=== PATIENT | female | born 1970 | race Two or more races ===

== ENCOUNTER → 2016-12-06 | Outpatient (CLI) | payer OTHER ==
[~2016-12-06] MED LIST: /TIZA4TA PO; ALEV220C2 PO; AMBI10TA PO; AMBI12.52 PO; CALC600T3 PO; CALTTAB5 PO; CELE-19 PO; CEPH2CAP PO; CETI10TA PO; CIPR500T89 PO; DICL13PA TD; DULO30CA PO; FLEX5TAB3 PO; LEVO112T2 PO; MOTRIN PO; MULTCAP11 PO; PERC5TAB6 PO; SERT25TA85 PO; VICODIN PO; ZANA4TAB PO; ZYRT10TA2 PO; [UNRECOGNIZED DRUG - OTHER] PO; vitamin D OR
--- NOTE | 2016-12-15 00:16 | ECWPNPC ---
PATIENT NAME: NELI COLLINS : 1970 GENDER: FEMALE VISIT DATE: 12/06/2016 DISCHARGE DATE: 12/06/16 1527 VISIT LOCKED DATE TIME: PHYSICIAN: JUAN COBOS RESOURCE: JUAN COBOS REASON FOR APPOINTMENT 1. POST BOTOX HISTORY OF PRESENT ILLNESS HISTORY OF PRESENT ILLNESS: PAIN THE PATIENT DESCRIBES THE PAIN... FALL RISK SCREENING: SCREENING :NO FALLS IN THE PAST YEAR TODAY'S VISIT: NOTES: S/P BOTOX INJECTION FOR CHRONIC MIGRAINE COMPLETED ON10/08/16. SINCE THEN VEENA HAS HAD 3 MIGRAINE HEADACHE EVENTS 2 OF WHICH WERE SEVERE WITH THE PULSATING NERVE SENSATION WHICH SHOOTS TO THE EYE, AND THESE HAVE LASTED 4-12 HOURS.. NOTES PAIN IS STARTING EALIER IN THE DAY THAN AFTER THE LAST INJECTION RATES PAIN LEVEL TODAY 7/10. DID EXPERIENCE INCREASED PHOTOPHOBIA AND PAIN WITH NECK MOVEMENTS. . CURRENT MEDICATIONS TAKING MULTIVITAMINS OTC CAPSULE 1 ORALLY DAILY, NOTES: 09/27/16 1400 TAKING VITAMIN D (ERGOCALCIFEROL) 20458 UNIT CAPSULE 1 CAPSULE ORALLY TWICE WEEKLY FOR LOW VIT D (ENDO), NOTES: > 1 WEEK TAKING VITAMIN D-3 5000 UNIT TABLET 1 TABLET ORALLY ONCE DAILY FOR LOW VIT D (ENDO), NOTES: 09/27/16 1400 TAKING PROBIOTIC CAPSULE 1 CAP(S) ORALLY DAILY, NOTES: > 1 WEEK TAKING LEVOTHYROXINE SODIUM 112 MCG TABLET 1 TABLET ORALLY ONCE A DAY, NOTES: 09/28/16 0930 TAKING FLONASE 50 MCG/DOSE INHALER 2 SPRAYS IN EACH NOSTRIL NASALLY ONCE A DAY, NOTES: 09/27/162199 TAKING MECLIZINE HCL 25 MG TABLET 2 TABLETS NEEDED ORALLY TID, NOTES: 09/26/16 1400 TAKING AMBIEN 10 MG TABLET 1 TABLET AT BEDTIME NEEDED ORALLY QHS PRN MDD=1, NOTES: 09/27/162199 TAKING ZANAFLEX 4 MG TABLET 1 AND ONE HALF TABLET NEEDED ORALLY EVERY 8 HRS MDD2 TAKING TRAMADOL HCL 50 MG TABLET 1 -2 TABLET ORALLY EVERY 6 HRS PRN PAIN MDD=6, NOTES: 09/27/16 1400 TAKING PROZAC 40 MG CAPSULE 1 CAPSULE IN THE MORNING ORALLY ONCE A DAY TAKING XANAX 0.5 MG TABLET 1 TABLET ORALLY TWICE A DAY NEEDED MDD=2, NOTES: 12/6/16 2200 MEDICATION LIST REVIEWED AND RECONCILED WITH THE PATIENT PAST MEDICAL HISTORY ALLERGIC RHINITIS DEPRESSION ANXIETY INSOMNIA CHRONIC NECK PAIN HYPOTHYROIDISM ALLERGIES ENVIRONMENTAL: ITCHY EYES, NASAL DRAINAGE: ALLERGY PERCOCET: NAUSEA/VOMITING: SIDE EFFECTS SOCIAL HISTORY GENERAL: TOBACCO USE ARE YOU A:NONSMOKER LEARNING BARRIERS / SPECIAL NEEDS ORIENTED TO PLAN OF CARE: PATIENT, PAIN MANAGEMENT PATIENT, ORIENTED TO PLAN OF CARE: PATIENT, PAIN MANAGEMENT PATIENT. NEW PATIENT PAIN DIARY TODAY'S VISITNOTES FROM 0-10, WHAT LEVEL IS YOUR PAIN TODAY?0 PAIN CLINIC PFS, CLERGY, PUBLIC HEALTH REFERRALS PFS REFERRAL NEEDED?NO CLERGY REFERRAL NEEDED?NO PUBLIC HEALTH REFERRAL NEEDED?NO WAS THE PROVIDER NOTIFIED OF ANY PERTINENT INFO?NO PFS REFERRAL NEEDED?NO CLERGY REFERRAL NEEDED?NO PUBLIC HEALTH REFERRAL NEEDED?NO WAS THE PROVIDER NOTIFIED OF ANY PERTINENT INFO?NO REVIEW OF SYSTEMS CONSTITUTIONAL: ANY CHANGE IN YOUR MEDICAL CONDITION? NO . CHILLS NO . FEVER NO . INFECTION: DO YOU HAVE NEW INFECTIONS? NO . DO YOU HAVE HISTORY OF MRSA? NO . MUSCULOSKELETAL: ANY NEW PATTERNS OF PAIN OR NUMBNESS? NO . GASTROENTEROLOGY: ANY NEW CHANGE IN BOWEL CONTROL? NO . GENITOURINARY: ANY NEW CHANGE IN BLADDER CONTROL? NO . IS THERE A CHANCE YOU COULD BE ? NO . HEMATOLOGY/LYMPH: DO YOU TAKE ANY BLOOD THINNERS? (FOR EXAMPLE- COUMADIN, PLAVIX, AGGRENOX, PLATEL, PRADAXA, OR XARELTO) NO . WHEN WAS YOUR LAST DOSE? DATE: TIME: . NEUROLOGY: HAVE YOU FALLEN IN THE PAST 6 MONTHS? YES-FELL ON STAIRS WITH LAUNDRY. NO ED EVAL . ANY NEW EXTREMITY NUMBNESS OR WEAKNESS? NO . CARDIOLOGY: DO YOU HAVE A PACEMAKER OR DEFIBRILLATOR? NO . RESPIRATORY: HAVE YOU BEEN SICK IN THE PAST WEEK? NO . FEVER NO . FLU LIKE SYMPTOMS? NO . COUGH NO . INTEGUMENTARY: DO YOU HAVE ANY RASHES OR OPEN SORES? NO . ALLERGIC/IMMUNO: ARE YOU ALLERGIC TO SHELLFISH OR IV DYE? NO . ANY NEW ALLERGIES? NO . PSYCHIATRIC: DO YOU HAVE THOUGHTS OF HURTING YOURSELF OR SOMEONE ELSE? NO . ARE YOU ABUSED, NEGLECTED, OR IN AN UNSAFE ENVIRONMENT? NO . ENDOCRINOLOGY: ARE YOU DIABETIC? NO . OTHER: DO YOU NEED ANY PRESCRIPTIONS? YES TRAMADOL-MAIL ORDER . IF YES, PLEASE LIST: ____ . ANY NEW PROBLEMS WITH YOUR MEDICATIONS? NO . WHEN DID YOU LAST EAT? ____ . WHEN DID YOU LAST DRINK? ____ . WHAT DID YOU LAST DRINK? ____ . NAME OF PERSON DRIVING YOU HOME? ____ . DO YOU HAVE ANY OTHER QUESTIONS OR CONCERNS NO . PSYCHOLOGY: ANXIETY SECONDARY TO FAMILY STRESS. STARTED ON XANAX BY PCP WHICH WAS HELPFUL. . REVIEWED BY: PROVIDER: JUAN SHIELDS . VITAL SIGNS WT 148 LBS, HT 62 IN, BMI 27.07 INDEX, BP 118/67 MM HG, HR 78 /MIN, RR 16 /MIN, TEMP 96.9 F, OXYGEN SAT % 96%, REVIEWED BY: MLF. EXAMINATION GENERAL EXAMINATION: PSYCHALERT , ORIENTED X 3 , GOOD EYE CONTACT, ABLE TO SMILE TODAY. LUNGS:CLEAR TO AUSCULTATION BILATERALLY. HEART:HEART RATE REGULAR. MUSCULOSKELETAL:MUSCLE STRENGTH TESTING 5/5 BILATERAL IN UPPER AND LOWER EXTREMITIES. , FEW TRIGGER POINTS:, ELICITED WITH PALPATION OVER CERVICAL SPINOUS PROCESSES AND ACROSS THE TRAPEZIUS MUSCLES BILATERALLY. CONVEYOR TENDER CONCRETE MIXING PLANT STRENGTH EQUAL AND STRONG. NEUROLOGIC EXAM:PAIN OVER GREAT OCCIPITAL NERVES BILATERALLY. . EOM'S INTACT WITHOUT NYSTAGMUS. SPEECH NON DYSARTHRIC, CN'S II-XII GROSSLY INTACT. ASSESSMENTS CHRONIC MIGRAINE W/O AURA W/O STATUS MIGRAINOSUS, NOT INTRACTABLE - G43.709 (PRIMARY) FACET ARTHROPATHY, CERVICAL - M46.92 MYALGIA - M79.1 TREATMENT CHRONIC MIGRAINE W/O AURA W/O STATUS MIGRAINOSUS, NOT INTRACTABLE REFILL TRAMADOL HCL TABLET, 50 MG, 1 -2 TABLET, ORALLY, EVERY 6 HRS PRN PAIN MDD=6, 30 DAY(S), 180, REFILLS 1 CHEMODENERVATION (BOTOX) MISC-MIGRAINE HEADACHESPAPITOOZIELJUAN M 12/06/2016 3:00:58 PM > DUEE 12/27/16 NOTES: CALL ANYTIME IF NEED ANYTHING. PREVENTIVE MEDICINE PAIN CLINIC TEACHING: PROCEDURE TEACHING REVIEWED BOTOX PROCEDURE INSTRUCTIONS WITH PATIENT. JAY. PROCEDURE CODES FA211 ESTABILISHED PATIENT [facility] FACILITY CHARGE DISPOSITION & COMMUNICATION FOLLOW UP AFTER BOTOX (REASON: CHECK AUTH FOR BOTOX) ELECTRONICALLY SIGNED BY MONICA BERNABE ON 12/14/2016 AT 06:35 PM EST DISCLAIMER : THIS IS A VISIT SUMMARY EXTRACTED FROM THE [employer] CHART. IT IS NOT A COPY OF THE [employer] PROGRESS NOTE. BRENDA
== END ==
LOC: M PAIN 14:20
PROVIDERS: ATTEND Nurse Practitioner Family
DX: G43.709 Chronic migraine without aura, not intractable, without status migrainosus (principal); M46.92 Unspecified inflammatory spondylopathy, cervical region; M79.1 Myalgia; G89.29 Other chronic pain; Z79.891 Long term (current) use of opiate analgesic; Z79.899 Other long term (current) drug therapy; F32.9 Major depressive disorder, single episode, unspecified; F41.9 Anxiety disorder, unspecified; M54.2 Cervicalgia; G47.00 Insomnia, unspecified; E03.9 Hypothyroidism, unspecified; J30.9 Allergic rhinitis, unspecified; Z88.6 Allergy status to analgesic agent

== ENCOUNTER → 2017-01-30 | Outpatient (CLI) | payer OTHER ==
[~2017-01-30] MED LIST changes: +BOTULINUM INJ 100 UNITS (J0585) IM ONE; +SERT25TA PO; +diazePAM 5 MG TAB As Ordered ONE
--- NOTE | 2017-02-08 00:05 | ECWPNPC ---
PATIENT NAME: NELI COLLINS : 1970 GENDER: FEMALE VISIT DATE: 01/30/2017 DISCHARGE DATE: 01/30/17 1423 VISIT LOCKED DATE TIME: PHYSICIAN: ROBERT MARSHALL RESOURCE: ROBERT MARSHALL REASON FOR APPOINTMENT 1. BOTOX HISTORY OF PRESENT ILLNESS HISTORY OF PRESENT ILLNESS: PAIN THE PATIENT DESCRIBES THE PAIN... FALL RISK SCREENING: SCREENING :NO FALLS IN THE PAST YEAR CURRENT MEDICATIONS TAKING MULTIVITAMINS OTC CAPSULE 1 ORALLY DAILY, NOTES: 1200 YESTERDAY TAKING VITAMIN D (ERGOCALCIFEROL) 75327 UNIT CAPSULE 1 CAPSULE ORALLY TWICE WEEKLY FOR LOW VIT D (ENDO), NOTES: LAST TUE TAKING VITAMIN D-3 5000 UNIT TABLET 1 TABLET ORALLY ONCE DAILY FOR LOW VIT D (ENDO), NOTES: DINNER 6PM TESTERDAY TAKING PROBIOTIC CAPSULE 1 CAP(S) ORALLY DAILY, NOTES: LUNCH YESTERDAY TAKING LEVOTHYROXINE SODIUM 112 MCG TABLET 1 TABLET ORALLY ONCE A DAY, NOTES: 1000 01/30/17 TAKING FLONASE 50 MCG/DOSE INHALER 2 SPRAYS IN EACH NOSTRIL NASALLY ONCE A DAY, NOTES: NOT LATELY TAKING MECLIZINE HCL 25 MG TABLET 2 TABLETS NEEDED ORALLY TID, NOTES: AWHILE TAKING ZANAFLEX 4 MG TABLET 1 AND ONE HALF TABLET NEEDED ORALLY EVERY 8 HRS MDD2, NOTES: BEDTIME 11PM LAST NIGHT TAKING TRAMADOL HCL 50 MG TABLET 1 -2 TABLET ORALLY EVERY 6 HRS PRN PAIN MDD=6, NOTES: 830 PM YESTERDAY TAKING AMBIEN 10 MG TABLET 1 TABLET AT BEDTIME NEEDED ORALLY QHS PRN MDD=1, NOTES: LAST NIGHT 11PM TAKING PROZAC 40 MG CAPSULE 1 CAPSULE IN THE MORNING ORALLY ONCE A DAY, NOTES: LUNCH YESTERDAY TAKING XANAX 0.5 MG TABLET 1 TABLET ORALLY TWICE A DAY NEEDED MDD=2, NOTES: 8PM LAST NIGHT MEDICATION LIST REVIEWED AND RECONCILED WITH THE PATIENT PAST MEDICAL HISTORY ALLERGIC RHINITIS DEPRESSION ANXIETY INSOMNIA CHRONIC NECK PAIN HYPOTHYROIDISM ALLERGIES ENVIRONMENTAL: ITCHY EYES, NASAL DRAINAGE: ALLERGY PERCOCET: NAUSEA/VOMITING: SIDE EFFECTS SOCIAL HISTORY GENERAL: PAIN CLINIC PFS, CLERGY, PUBLIC HEALTH REFERRALS CLERGY REFERRAL NEEDED?NO WAS THE PROVIDER NOTIFIED OF ANY PERTINENT INFO?NO PFS REFERRAL NEEDED?NO PUBLIC HEALTH REFERRAL NEEDED?NO PATIENT: ____. REVIEW OF SYSTEMS CONSTITUTIONAL: ANY CHANGE IN YOUR MEDICAL CONDITION? NO . CHILLS NO . FEVER NO . INFECTION: DO YOU HAVE NEW INFECTIONS? NO . DO YOU HAVE HISTORY OF MRSA? NO . MUSCULOSKELETAL: ANY NEW PATTERNS OF PAIN OR NUMBNESS? NO . GASTROENTEROLOGY: ANY NEW CHANGE IN BOWEL CONTROL? NO . GENITOURINARY: ANY NEW CHANGE IN BLADDER CONTROL? NO . IS THERE A CHANCE YOU COULD BE ? NO . HEMATOLOGY/LYMPH: DO YOU TAKE ANY BLOOD THINNERS? (FOR EXAMPLE- COUMADIN, PLAVIX, AGGRENOX, PLATEL, PRADAXA, OR XARELTO) NO . WHEN WAS YOUR LAST DOSE? DATE: TIME: . NEUROLOGY: HAVE YOU FALLEN IN THE PAST 6 MONTHS? NO . ANY NEW EXTREMITY NUMBNESS OR WEAKNESS? NO . CARDIOLOGY: DO YOU HAVE A PACEMAKER OR DEFIBRILLATOR? NO . RESPIRATORY: HAVE YOU BEEN SICK IN THE PAST WEEK? NO . FEVER NO . FLU LIKE SYMPTOMS? NO . COUGH NO . INTEGUMENTARY: DO YOU HAVE ANY RASHES OR OPEN SORES? NO . ALLERGIC/IMMUNO: ARE YOU ALLERGIC TO SHELLFISH OR IV DYE? NO . ANY NEW ALLERGIES? NO . PSYCHIATRIC: DO YOU HAVE THOUGHTS OF HURTING YOURSELF OR SOMEONE ELSE? NO . ARE YOU ABUSED, NEGLECTED, OR IN AN UNSAFE ENVIRONMENT? NO . ENDOCRINOLOGY: ARE YOU DIABETIC? NO . OTHER: DO YOU NEED ANY PRESCRIPTIONS? NO . IF YES, PLEASE LIST: ____ . ANY NEW PROBLEMS WITH YOUR MEDICATIONS? NO . WHEN DID YOU LAST EAT? 9PM LAST NIGHT . WHEN DID YOU LAST DRINK? 1030 TODAY AM . WHAT DID YOU LAST DRINK? WATER . NAME OF PERSON DRIVING YOU HOME? SON - BOSTON COLLINS . DO YOU HAVE ANY OTHER QUESTIONS OR CONCERNS NO . REVIEWED BY: PROVIDER: . VITAL SIGNS WT 137.2 LBS, HT 62 IN, BMI 25.09 INDEX, BP 103/70 MM HG, HR 85 /MIN, RR 18 /MIN, TEMP 97.7 F, OXYGEN SAT % 96, REVIEWED BY: NL. ASSESSMENTS CHRONIC MIGRAINE WITHOUT AURA, NOT INTRACTABLE, WITHOUT STATUS MIGRAINOSUS - G43.709 (PRIMARY) PROCEDURES PRE PROCEDURE DIAGNOSIS CHRONIC MIGRAINE HEADACHES. POST PROCEDURE DIAGNOSIS CHRONIC MIGRAINE HEADACHES. PROCEDURE BOTOX INJECTION AT THE HEAD, NECK AND SHOULDERS. SURGEON DR. ROBERT MARSHALL. REVENUE AUDIT CLERK NONE. ANESTHESIA NONE. PRE PROCEDURE NOTE THE PATIENT HAS HISTORY OF CHRONIC MIGRAINE HEADACHES. I EVALUATE THE PATIENT AND REVIEWED THE CHART. I WENT OVER THE RISKS, ALTERNATIVES, AND BENEFITS ASSOCIATED WITH THIS PROCEDURE. THE PATIENT WOULD LIKE TO PROCEED AND GIVE CONSENT TO PERFORMED THE PROCEDURE. THE PATIENT DENIES UNEXPLAINABLE WEIGHT LOSS, FEVER, CHILLS, OR NEW CHANGES IN URINARY OR BOWEL CONTROL. THE PATIENT DID A BOTOX INJECTION AT THE HEAD, NECK AND SHOULDERS 3 MONTHS AGO AND EXPRESSED MORE THAN 50% REDUCTION ON THE FREQUENCY AND INTENSITY OF THE HEADACHES. THE PATIENT EXPRESS THAT THE USE OF BOTOX HAS REDUCE SIGNIFICANTLY THE SEVERITY OF THE HEADACHES AND EXPRESSED THAT WANT TO RECEIVE THIS PROCEDURE AGAIN TODAY. DESCRIPTION OF PROCEDURE THE PATIENTS WAS BROUGHT TO THE PROCEDURE ROOM AND PLACED IN THE SUPINE POSITION. I CHECKED LATERALITY AND THE AREAS WHERE THE PROCEDURE WAS GOING TO BE PERFORMED WITH THE PATIENT AND THE SUPPORTING STAFF AT THE MOMENT OF THE TIME OUT IN THE PROCEDURE ROOM. FOR THE PROCEDURE I USED A SOLUTION OF 5 UNITS OF BOTOX PER EACH 0.1 ML OF THE SOLUTION. I USED A 30-GAUGE NEEDLE TO INJECT THE SOLUTION AT THE SELECTED LOCATIONS. I INJECTED FIRST THE RIGHT AND LEFT RN TRANSPLANT MUSCLES. THE LANDMARK FOR BOTH INJECTIONS WAS APPROXIMATELY 1 CM ABOVE THE SUPERIOR MEDIAL EDGE OF THE EYEBROW. AFTER THESE TWO INJECTIONS, I INJECTED THE PROCERUS MUSCLE AT THE MIDLINE POINT BETWEEN THESE FIRST TWO INJECTIONS. THEN I PROCEEDED TO INJECT THE RIGHT AND LEFT FRONTALIS MUSCLE. TWO INJECTIONS WERE DONE IN EACH SIDE. THE FIRST INJECTION WAS DONE APPROXIMATELY 2 CM ABOVE THE FIRST INJECTION OF THE RN TRANSPLANT. THE SECOND INJECTION WAS DONE APPROXIMATELY 1.5 CM LATERAL TO THIS FIST INJECTION OF THE FRONTALIS OF EACH SIDE. AFTER THE INJECTIONS OVER THE FOREHEAD WERE DONE, THE PATIENT'S HEAD WAS TURNED TO THE LEFT SIDE AND WE STARTED TO WORK WITH THE RIGHT TEMPORALIS MUSCLE. FIRST INJECTION WAS DONE IN A VERTICAL LINE OF THE TRAGUS APPROXIMATELY 3 CM ABOVE THE TRAGUS. THE SECOND INJECTION WAS DONE APPROXIMATELY 2 CM ABOVE THE FIRST INJECTION. THE THIRD INJECTION WAS DONE APPROXIMATELY 1 CM FRONT CONNELLY FROM THIS VERTICAL LINE CREATED AT THE LEVEL OF THE TRAGUS, JAIL BETWEEN THESE TWO INJECTIONS. THE FOURTH INJECTION WAS DONE APPROXIMATELY 1.5 CM BACK FROM THE SECOND INJECTION TO THE TEMPORALIS IN LINE TO THE MIDPORTION OF THE EAR. THEN, WE PROCEEDED TO INJECT THE LEFT TEMPORALIS MUSCLE. WE CLEANED THE AREA WITH ALCOHOL AND PROCEEDED TO PERFORM THE SAME FOR INJECTIONS DESCRIBED ABOVE BUT IN THE LEFT TEMPORALIS MUSCLE USING THE SAME LANDMARKS. AFTER THESE INJECTIONS WERE DONE, THE PATIENT WAS SEATED. FIRST, WE STARTED TO INJECT THE LEFT AND RIGHT OCCIPITALIS MUSCLE. I INJECTED AT THE FOLLOWING PLACES IN THE RIGHT AND LEFT MUSCLE. THE FIRST INJECTION WAS DONE AT THE MIDPOINT POSITION BETWEEN THE MASTOID PROCESS AND THE INION OF THE OCCIPITAL PROTUBERANCE. THE SECOND INJECTION WAS DONE APPROXIMATELY 1.5 CM SUPERIOR AND LATERAL OF THIS POINT. THE THIRD INJECTION WAS DONE APPROXIMATELY 1.5 CM SUPERIOR AND MEDIAL TO THIS FIRST INJECTION. THEN, I PROCEEDED TO INJECT THE RIGHT AND LEFT PARASPINAL MUSCLES. LANDMARK OF THE INJECTION WERE APPROXIMATELY: FIRST INJECTION 3 CM BELOW THE INION AND 1 CM LATERAL TO THE MIDLINE AND SECOND INJECTION AT EACH SIDE WAS DONE APPROXIMATELY 1.5 CM SUPERIOR AND LATERAL OF THE FIRST INJECTION. THE LAST GROUP OF INJECTIONS WAS DONE OVER THE RIGHT AND LEFT TRAPEZIUS MUSCLE OVER THE SHOULDERS AREA. THE FIRST INJECTION WAS DONE AT THE MIDPOINT BETWEEN THE INFLECTION POINT BETWEEN THE NECK AND SHOULDER AND THE ACROMION. THE SECOND AND THIRD INJECTIONS WERE DONE APPROXIMATELY 2.5 CM LATERAL AND MEDIAL FROM THIS FIRST INJECTION. SAME TARGETS WERE USED IN THE RIGHT AND LEFT SIDE. IN TOTAL, I INJECTED 155 UNITS OF BOTOX. PROCEDURE WAS DONE WITHOUT EVIDENCE OF PARESTHESIA, PNEUMOTHORAX, OR ANY COMPLICATIONS. THE PATIENT TOLERATED THE PROCEDURE VERY WELL. THE PATIENT WAS SENT TO THE RECOVERY ROOM FOR OBSERVATIONS. INJECTIONS WERE DONE AFTER CLEANING WITH ALCOHOL, USING ASEPTIC TECHNIQUES. POST PROCEDURE NOTE THE PROCEDURE DONE WAS DISCUSSED WITH THE PATIENT. THE PATIENT WILL BE SEEN IN A FOLLOW UP IN THE NEXT FEW WEEKS. INSTRUCTIONS WERE GIVEN, QUESTIONS WERE ANSWERED, AND THE PATIENT EXPRESSED UNDERSTANDING AND AGREES WITH THE PLAN. I, ALFREDO BRISENO, DOCUMENTED THE ABOVE INFORMATION ACTING A SCRIBE FOR DR. MARSHALL. I HAVE REVIEWED THE ABOVE DOCUMENT, WRITTEN BY ALFREDO HAM AND I VERIFY THAT IT IS ACCURATE. PROCEDURE CODES 47826 CHEMODENERV [facility] MIGRAINE DISPOSITION & COMMUNICATION FOLLOW UP 3 WEEKS ELECTRONICALLY SIGNED BY ROBERT MARSHALL MD ON 02/07/2017 AT 08:36 PM EDT DISCLAIMER : THIS IS A VISIT SUMMARY EXTRACTED FROM THE [employer] CHART. IT IS NOT A COPY OF THE [employer] PROGRESS NOTE. BRENDA
== END ==
LOC: M PAIN 11:40
PROVIDERS: ATTEND Anesthesiology
DX: G43.709 Chronic migraine without aura, not intractable, without status migrainosus (principal); F32.9 Major depressive disorder, single episode, unspecified; F41.9 Anxiety disorder, unspecified; G47.00 Insomnia, unspecified; E03.9 Hypothyroidism, unspecified; J30.9 Allergic rhinitis, unspecified; Z88.5 Allergy status to narcotic agent; Z79.891 Long term (current) use of opiate analgesic; Z79.899 Other long term (current) drug therapy
CPT/HCPCS: 64615; J0585

== ENCOUNTER → 2017-02-20 | Outpatient (CLI) | payer OTHER ==
[~2017-02-20] MED LIST changes: -BOTULINUM INJ 100 UNITS (J0585) IM ONE; -diazePAM 5 MG TAB As Ordered ONE
[2017-02-20 20:08] LABS: FREE T4 1.6 NG/DL (0.76-1.46)
== END ==
LOC: M LRY 12:34
PROVIDERS: ATTEND Physician Assistant Medical
DX: E06.3 Autoimmune thyroiditis (principal); E55.9 Vitamin D deficiency, unspecified

== ENCOUNTER → 2017-02-23 | Outpatient (CLI) | payer OTHER ==
--- NOTE | 2017-02-23 23:30 | ECWPNPC ---
PATIENT NAME: NELI COLLINS : 1970 GENDER: FEMALE VISIT DATE: 02/23/2017 DISCHARGE DATE: 02/23/17 1529 VISIT LOCKED DATE TIME: PHYSICIAN: JUAN COBOS RESOURCE: JUAN COBOS HISTORY OF PRESENT ILLNESS HISTORY OF PRESENT ILLNESS: PAIN THE PATIENT DESCRIBES THE PAIN... FALL RISK SCREENING: SCREENING :NO FALLS IN THE PAST YEAR TODAY'S VISIT: NOTES: S/P BOTOX INJECTION 01/30/17. NOTES SORENESS FOR THE 1ST WEEK AFTER INJECTIONS. HAS ONLY SEVERE MIGRAINE STARTING AT THE LEFT NECK AND RADIATED TO LEFT EYE. EVEN LASTED 24 HOURS AND THEN SUBSIDED. OTHERWISE HAS HAD A SORENESS AND SOME TIGHTNESS AND THEN MORE RELIEF TIME PASSED. USES TENS UNIT TO LEFT SHOULDER WITH GOOD EFFECT. WITH SEVERE MIGRAINE HAS N/V PHOTOAND PHONO PHOBIA. IS NOTING SOME INCREASE IN NECK AREA PAIN DUE TO HEAVY LIFTING. NO NEW N/T IN THE ARMS. . CURRENT MEDICATIONS TAKING MULTIVITAMINS OTC CAPSULE 1 ORALLY DAILY TAKING VITAMIN D (ERGOCALCIFEROL) 29088 UNIT CAPSULE 1 CAPSULE ORALLY TWICE WEEKLY FOR LOW VIT D (ENDO) TAKING VITAMIN D-3 5000 UNIT TABLET 1 TABLET ORALLY ONCE DAILY FOR LOW VIT D (ENDO) TAKING PROBIOTIC CAPSULE 1 CAP(S) ORALLY DAILY TAKING LEVOTHYROXINE SODIUM 112 MCG TABLET 1 TABLET ORALLY ONCE A DAY TAKING FLONASE 50 MCG/DOSE INHALER 2 SPRAYS IN EACH NOSTRIL NASALLY ONCE A DAY TAKING MECLIZINE HCL 25 MG TABLET 2 TABLETS NEEDED ORALLY TID TAKING ZANAFLEX 4 MG TABLET 1 AND ONE HALF TABLET NEEDED ORALLY EVERY 8 HRS MDD2 TAKING TRAMADOL HCL 50 MG TABLET 1 -2 TABLET ORALLY EVERY 6 HRS PRN PAIN MDD=6 TAKING AMBIEN 10 MG TABLET 1 TABLET AT BEDTIME NEEDED ORALLY QHS PRN MDD=1 TAKING PROZAC 40 MG CAPSULE 1 CAPSULE IN THE MORNING ORALLY ONCE A DAY TAKING XANAX 0.5 MG TABLET 1 TABLET ORALLY TWICE A DAY NEEDED MDD=2 MEDICATION LIST REVIEWED AND RECONCILED WITH THE PATIENT PAST MEDICAL HISTORY ALLERGIC RHINITIS DEPRESSION ANXIETY INSOMNIA CHRONIC NECK PAIN HYPOTHYROIDISM ALLERGIES ENVIRONMENTAL: ITCHY EYES, NASAL DRAINAGE: ALLERGY PERCOCET: NAUSEA/VOMITING: SIDE EFFECTS REVIEW OF SYSTEMS CONSTITUTIONAL: ANY CHANGE IN YOUR MEDICAL CONDITION? NO . CHILLS NO . FEVER NO . INFECTION: DO YOU HAVE NEW INFECTIONS? NO . DO YOU HAVE HISTORY OF MRSA? NO . MUSCULOSKELETAL: ANY NEW PATTERNS OF PAIN OR NUMBNESS? NO . GASTROENTEROLOGY: ANY NEW CHANGE IN BOWEL CONTROL? NO . GENITOURINARY: ANY NEW CHANGE IN BLADDER CONTROL? NO . IS THERE A CHANCE YOU COULD BE ? NO . HEMATOLOGY/LYMPH: DO YOU TAKE ANY BLOOD THINNERS? (FOR EXAMPLE- COUMADIN, PLAVIX, AGGRENOX, PLATEL, PRADAXA, OR XARELTO) NO . WHEN WAS YOUR LAST DOSE? DATE: TIME: . NEUROLOGY: HAVE YOU FALLEN IN THE PAST 6 MONTHS? NO . ANY NEW EXTREMITY NUMBNESS OR WEAKNESS? NO . CARDIOLOGY: DO YOU HAVE A PACEMAKER OR DEFIBRILLATOR? NO . RESPIRATORY: HAVE YOU BEEN SICK IN THE PAST WEEK? NO . FEVER NO . FLU LIKE SYMPTOMS? NO . COUGH NO . INTEGUMENTARY: DO YOU HAVE ANY RASHES OR OPEN SORES? NO . ALLERGIC/IMMUNO: ARE YOU ALLERGIC TO SHELLFISH OR IV DYE? NO . ANY NEW ALLERGIES? NO . PSYCHIATRIC: DO YOU HAVE THOUGHTS OF HURTING YOURSELF OR SOMEONE ELSE? NO . ARE YOU ABUSED, NEGLECTED, OR IN AN UNSAFE ENVIRONMENT? NO . ENDOCRINOLOGY: ARE YOU DIABETIC? NO . OTHER: DO YOU NEED ANY PRESCRIPTIONS? YES . IF YES, PLEASE LIST: TIZANIDINE AND TRAMADOL . ANY NEW PROBLEMS WITH YOUR MEDICATIONS? NO . WHEN DID YOU LAST EAT? ____ . WHEN DID YOU LAST DRINK? ____ . WHAT DID YOU LAST DRINK? ____ . NAME OF PERSON DRIVING YOU HOME? ____ . DO YOU HAVE ANY OTHER QUESTIONS OR CONCERNS YES, RECORDS RELEASE . REVIEWED BY: PROVIDER: JUAN SHIELDS . VITAL SIGNS WT 135.6 LBS, HT 62 IN, BMI 24.80 INDEX, BP 126/78 MM HG, HR 72 /MIN, RR 16 /MIN, TEMP 98.0 F, OXYGEN SAT % 95%, REVIEWED BY: CS (DONE AT 1430). EXAMINATION GENERAL EXAMINATION: PSYCHALERT , ORIENTED X 3 , GOOD EYE CONTACT, ABLE TO SMILE TODAY. LUNGS:CLEAR TO AUSCULTATION BILATERALLY. HEART:HEART RATE REGULAR. MUSCULOSKELETAL:MUSCLE STRENGTH TESTING 5/5 BILATERAL IN UPPER AND LOWER EXTREMITIES. , FEW TRIGGER POINTS:, ELICITED WITH PALPATION OVER CERVICAL SPINOUS PROCESSES AND ACROSS THE TRAPEZIUS MUSCLES BILATERALLY. 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 DECREASED ROM WITH NECK ROTATION. PAIN/TIGHTNESS REPORTED WITH SHOULDER SHRUG. NEUROLOGIC EXAM:PAIN OVER GREAT OCCIPITAL NERVES BILATERALLY. . EOM'S INTACT WITHOUT NYSTAGMUS. SPEECH NON DYSARTHRIC, CN'S II-XII GROSSLY INTACT. DTR'S 2+ RUE, 3+ LUE, AND 3+ BILATERAL LOWER EXTRENITES. NO CLONUS. . ASSESSMENTS CHRONIC MIGRAINE WITHOUT AURA, NOT INTRACTABLE, WITHOUT STATUS MIGRAINOSUS - G43.709 (PRIMARY) CERVICALGIA - M54.2 TREATMENT CHRONIC MIGRAINE WITHOUT AURA, NOT INTRACTABLE, WITHOUT STATUS MIGRAINOSUS REFILL ZANAFLEX TABLET, 4 MG, 1 AND ONE HALF TABLET NEEDED, ORALLY, EVERY 8 HRS MDD2, 90 DAY(S), 180, REFILLS 2 REFILL TRAMADOL HCL TABLET, 50 MG, 1 -2 TABLET, ORALLY, EVERY 6 HRS PRN PAIN MDD=6 CODE D CHRONIC PAIN, 90 DAY(S), 360, REFILLS 0 NOTES: GET CONNECTED TO PROVIDER TO DO BOTOX PRIOR TO 05/01/17. CONTINUE TENS UNIT. SCRIPT WRITTEN FOR PATCHES. CONTINUE CURRENT MEDS. CLINICAL NOTES: [employer] REGISTRY REVIEWED AND DEMNOSTRATES COMPLLIANCE. PROCEDURE CODES FA211 ESTABILISHED PATIENT [facility] FACILITY CHARGE DISPOSITION & COMMUNICATION FOLLOW UP CALL IF APPOINTMENT NEEDED (REASON: MOVING FROM AREA) ELECTRONICALLY SIGNED BY MONICA BERNABE ON 02/23/2017 AT 05:29 PM EDT DISCLAIMER : THIS IS A VISIT SUMMARY EXTRACTED FROM THE [employer] CHART. IT IS NOT A COPY OF THE [employer] [facility] PROGRESS NOTE. BRENDA
== END ==
LOC: M PAIN 14:20
PROVIDERS: ATTEND Nurse Practitioner Family
DX: G43.709 Chronic migraine without aura, not intractable, without status migrainosus (principal); M54.2 Cervicalgia; J30.89 Other allergic rhinitis; F32.9 Major depressive disorder, single episode, unspecified; F41.9 Anxiety disorder, unspecified; G47.00 Insomnia, unspecified; E03.9 Hypothyroidism, unspecified; J30.2 Other seasonal allergic rhinitis; Z88.5 Allergy status to narcotic agent; Z79.891 Long term (current) use of opiate analgesic; Z79.899 Other long term (current) drug therapy